=== PATIENT | male | born 1950 | race Caucasian/White ===

== ENCOUNTER 2020-02-22 10:01 | Inpatient (IN) ==
[2020-02-22] MEDS ORDERED: 0.9 % Sodium Chloride 1,000 ML IVC ONE ×2 (10:53→12:52)
[2020-02-22] MEDS ORDERED: Ondansetron 4 MG/2 ML VIAL IVP ONE (10:53)
[2020-02-22 11:21] LABS: Basophils % 0.1 %; Hematocrit 48.9 % (37.5-50.1); Hemoglobin 16.6 g/dL (12.9-16.9); Immature Granulocytes % 0.6 % (0-4); Lymphocytes # 0.7 K/mcL (0.6-4.6); Lymphocytes % 3.1 %; Mean Corpuscular HGB Conc 33.9 g/dL (31.6-35.5); Mean Corpuscular Hemoglobin 30.2 pg (28.0-33.3); Mean Corpuscular Volume 88.9 fL (83.0-100.0); Monocytes # 0.4 K/mcL (0.0-1.3); Monocytes % 1.8 %; Neutrophils # 21.3 K/mcL (1.6-8.9); Platelet Count 285 K/mcL (140-400); Red Cell Distribution Width 13.1 % (11.5-14.5); Segmented Neutrophils % 94.4 %; White Blood Count 22.6 K/mcL (4.3-11.1)
[2020-02-22 11:24] LABS: Bilirubin,Urine Negative (Negative); Blood,Urine Small (Negative); Clarity,Urine Clear (Clear); Color,Urine Yellow (Yellow); Glucose,Urine (UA) >=1000 mg/dL (Normal); Ketones,Urine 15 mg/dL (Negative); Leukocyte Esterase,Urine Negative (Negative); Nitrite,Urine Negative (Negative); PH,Urine 5.5 pH Units (5.0-8.0); Protein,Urine 30 mg/dL (Neg-Trace); Urobilinogen,Urine Normal (Normal)
[2020-02-22 11:27] LABS: RBC,Urine 0-3 per hpf (0-3); WBC,Urine 0-3 per hpf (0-3)
[2020-02-22 11:28] LABS: Bacteria,Urine Few per hpf (None-Few)
[2020-02-22 11:31] LABS: VBG HCO3 26 mEq/L (21-27); VBG PCO2 45 mmHg (41-51); VBG PH 7.37 pH Units (7.32-7.42); VBG PO2 38 mmHg (25-50)
[2020-02-22 11:33] LABS: Platelet Estimate Normal (Normal)
[2020-02-22 11:36] LABS: Albumin 4.3 g/dL (3.5-5.7); Albumin/Globulin Ratio 1.2 (1.1-2.2); Calcium 9.9 mg/dL (8.6-10.3); Globulin 3.5 g/dL (2.4-3.5); Potassium 3.9 mEq/L (3.5-5.1); Total Protein 7.8 g/dL (6.4-8.9)
[2020-02-22] MEDS ORDERED: Insulin Regular, Human 100 UNIT/ML SQ ONE (11:37)
[2020-02-22] MEDS ORDERED: Clindamycin 600 MG/50 ML 600 MG/50 ML IV.SOLN IVPB ONE (11:37)
[2020-02-22] MEDS ORDERED: 0.9 % Sodium Chloride 1,000 ML IVC SCH (14:45)
[2020-02-22] MEDS ORDERED: NON-FORMULARY MEDICATION 1 EACH EACH (Dulaglutide [Trulicity] 0.75 MG) SQ SCH (16:15)
[2020-02-22] MEDS ORDERED: D5% in Water 1,000 ML IVC PRN (16:29)
[2020-02-22] MEDS ORDERED: Dextrose Gel 15 GM/37.5 ML TUBE PO PRN ×2 (16:29)
[2020-02-22] MEDS ORDERED: *HR* Dextrose 50 % in Water (Vial) 50 ML VIAL IVP PRN (16:29)
[2020-02-22] MEDS ORDERED: Insulin LISPRO 300 UNITS/3 ML VIAL SQ SCH ×2 (16:30→21:00)
[2020-02-22] MEDS ORDERED: Ondansetron ODT 4 MG TAB.RAPDIS SL PRN (17:05)
[2020-02-22 19:46] LABS: BUN/Creatinine Ratio 38 (6-26); Blood Urea Nitrogen 53 mg/dL (8-23); Carbon Dioxide 26 mEq/L (23-29); Chloride 103 mEq/L (98-107); Glucose 302 mg/dL (70-105); Osmolality,Calculated 316 (280-300); Potassium 3.5 mEq/L (3.5-5.1); Sodium 140 mEq/L (136-145); eGFR For African Americans > 60 (> 60); eGFR For Non-African Americans 50 (> 60)
[2020-02-22 20:31] VITALS: BP 127/81
[2020-02-22] MEDS ORDERED: Insulin NPH/REG 70/30 300 UNIT/3 ML per UNIT SQ ONE (21:00)
[2020-02-23] MEDS ORDERED: hydroCHLOROthiazide 25 MG TABLET PO SCH (09:00)
[2020-02-23] MEDS ORDERED: *HR* GlipiZIDE XL (24 HR) 2.5 MG TABLET PO SCH (09:00)
[2020-02-23] MEDS ORDERED: Empagliflozin [Jardiance] 10 MG PO SCH (09:00)
[2020-02-23] MEDS ORDERED: Insulin NPH/REG 70/30 100 UNIT/ML (x5UNIT) SQ SCH ×2 (09:00)
[2020-02-23] MEDS ORDERED: cilostazoL 100 MG TABLET PO SCH (09:00)
[2020-02-23] MEDS ORDERED: amLODIPine 5 MG TABLET PO SCH (09:00)
[2020-02-23] MEDS ORDERED: allopurinoL 300 MG TABLET PO SCH (09:00)
[2020-02-23] MEDS ORDERED: Metoprolol XL (24 HR) Succ 50 MG TAB.ER.24H PO SCH (09:00)
== END 2020-02-22 21:30 | disposition short-term general hospital (02) | DRG 872 ==
LOC: INPGRE 10:01 → EMEROOGRE 10:01 → INPGRE 15:24
PROVIDERS: ADMIT Family Medicine; ATTEND Family Medicine